=== PATIENT | female | born 1965 | race Caucasian/White ===

== ENCOUNTER → 2023-07-23 07:47 | Outpatient (REF) | payer BC, SELFPAY | LOC: RAD 07:47 | PROVIDERS: ATTENDING PHYSICIAN Family Medicine | DX: R10.11 Right upper quadrant pain (principal) | CPT/HCPCS: 78226; A9537 ==

== ENCOUNTER → 2023-08-27 12:35 | Outpatient (REF) | payer BC, SELFPAY | LOC: HWWDC 12:35 | PROVIDERS: ATTENDING PHYSICIAN Obstetrics & Gynecology; FAMILY PHYSICIAN Family Medicine | DX: Z12.31 Encounter for screening mammogram for malignant neoplasm of breast (principal) | CPT/HCPCS: 77063; 77067 ==

== ENCOUNTER 2024-05-31 10:20 | Emergency (ER) | payer BC, SELFPAY ==
[2024-05-31 10:34] VITALS: BP 182/100
[2024-05-31 11:40] VITALS: BP 138/84
--- NOTE | 2024-05-31 11:46 | ED.GENMED ---
History of Present Illness
General
Chief Complaint: Musculo-Skeletal Complaint
Source: patient
Time Seen by Provider: 05/31/24 11:38
History of Present Illness
History of Present Illness:
58-year-old female with past medical history of hypertension presenting to the emergency department for evaluation after she slipped and fell on some ice this morning, now noting some pain to the right upper rib area. Patient notes no difficulty
breathing, no head injury, no LOC, no vomiting and no other injury sustained to her extremities. Patient denies any use of anticoagulants.
Past History
Past History
ED Past Medical History: HTN
ED Past Surgical History:
Social History
Tobacco: Non-smoker
Alcohol: Occasional
Drug: None
Personal:
Living: with family
Review of Systems
Review of Systems
All Other Systems: ROS reviewed and negative except as documented in HPI and ROS
Phy Exam
Physical Exam
Physical Exam:
GENERAL: Alert , in no apparent distress
HEAD: NCAT
EYE: conjunctiva clear
NECK: Supple
ENT: o/p clr, mmm.
CARDIAC: Regular rate and rhythm
LUNGS: Clear breath sounds bilaterally, no acute respiratory distress, no wheezes/rales/rhonchi
CHEST WALL: mild tenderness lateral ribs just inferior to axilla. no breaks in skin and no ecchymosis
NEUROLOGICAL: Alert and oriented
SKIN: Warm and dry, skin intact.
MUSCULOSKELETAL: well perfused.
PSYCH: Normal and appropriate interaction.
Scores
Heart Failure Risk
Heart Failure Risk Score: Not Applicable
Heart Score for Chest Pain Patients
STEMI patient?: Not applicable
Withdrawal Assessment of Alcohol
Withdrawal Assessment Completed?: Not applicable
Course
Orders/Labs/Results
Orders:
Orders
05/31/24 10:37
CR Ribs-right 3 Vw W/pa Chest* Urgent
Comment:
Reason For Exam: fall, pain
Vital Signs
Initial and Last Documented VS:
Initial Vital Signs
Temp Pulse Resp BP Pulse Ox
98.6 F 80 16 182/100 99
05/31/24 10:34 05/31/24 10:34 05/31/24 10:34 05/31/24 10:34 05/31/24 10:34
Last Documented Vital Signs
Temp Pulse Resp BP Pulse Ox
98.6 F 72 20 138/84 99
05/31/24 10:34 05/31/24 11:40 05/31/24 11:40 05/31/24 11:40 05/31/24 11:40
MDM/Problems Addressed
Differential Diagnosis Includes:
Contusion, fracture, pneumothorax, visceral injury
MDM/Problems Addressed:
58-year-old female presenting to the emergency department for evaluation of right lateral rib pain following an accidental fall on ice. Patient in no acute distress, no respiratory component. There is some mild tenderness over the lateral chest
wall. Will obtain an x-ray/rib series. Disposition pending
*Radiology
Radiology exam reviewed: preliminary read by ED provider (No evidence for acute fracture or pneumothorax)
*Pulse Oximetry
Patient hypoxic: no
*Critical Care Note
Total Time (30-74mins, 75-104mins- exclusive of procedures): Not Applicable
Patient Management
Escalation/DeEscalation of care consider admission/obs:
Patient's imaging is largely unremarkable. She is hemodynamically stable, no respiratory distress. Advised NSAIDs/Tylenol as needed for pain. Otherwise stable for discharge home and aware of return precautions.
ED Attending Note
-
Portions of this chart may have been created with voice recognition software.� Occasional wrong word or��sound alike� substitutions may have occurred due to the inherent limitations of voice recognition software.
Discharge Plan
Departure
Patient Disposition: Home (Routine Discharge)
Date of Disposition: 05/31/24
Time of Disposition: 11:46
Patient with high blood pressure during this ER visit?: Yes
Discharge Problem:
Fall due to ice or snow, Rib pain on right side
Instructions: Rib fracture or bruised rib - ED discharge instructions
Referrals:
Lauren Barnett, DO [Family Provider] -
Interventions
Interventions:
*Risk Screen - Suicide Last Done: 05/31/24 10:34
*General Assessment Last Done: 05/31/24 10:34
*Neglect/Abuse Screening Last Done: 05/31/24 11:40
*ED COVID-19 Vaccine History Last Done: 05/31/24 10:34
*Nursing Disposition Last Done: 05/31/24 12:00
ED-Musculoskeletal Assessment Last Done: 05/31/24 11:40
Discharge Date and Time
Discharge Date/Time: 05/31/24 12:00
Print Language: [id number]
== END 2024-05-31 12:00 | disposition home or self-care (01) ==
LOC: EMR 10:20
PROVIDERS: EMERGENCY PHYSICIAN Emergency Medicine; FAMILY PHYSICIAN Family Medicine
DX: R07.81 Pleurodynia (principal); W00.0XXA Fall on same level due to ice and snow, initial encounter; I10 Essential (primary) hypertension
CPT/HCPCS: 99283; 71101

== ENCOUNTER → 2025-02-07 10:12 | Outpatient (REF) | payer BC, SELFPAY | LOC: HWRAD 10:12 | PROVIDERS: ATTENDING PHYSICIAN Obstetrics & Gynecology; FAMILY PHYSICIAN Family Medicine | DX: N95.0 Postmenopausal bleeding (principal) | CPT/HCPCS: 76830; 76856 ==